=== PATIENT | male | born 1960 | race American Indian/Alaskan Native ===

== ENCOUNTER 2018-03-25 12:53 | Outpatient (CLI) | payer SELFPAY ==
--- NOTE | 2018-03-25 14:47 | XRay Report ---
Cervical spine, 5 views History: Cervical pain. Findings: No comparison. There is straightening of the normal lordosis which could be secondary to muscular spasm or positioning of the patient. There is mild disc space narrowing at C5-6. The remaining disc levels are within normal limits. The posterior elements are in appropriate relationship. Mild bilateral neural foraminal narrowing is identified at C5-6. The remaining neural foramen are patent. No evidence for fracture or malalignment. IMPRESSION: Straightening of the normal lordosis. Mild degenerative disc disease at C5-6.
== END 2018-03-25 12:54 | disposition home or self-care (01) ==
LOC: XRAY 12:53
PROVIDERS: ATTEND Family Medicine Adult Medicine
DX: M50.322 Other cervical disc degeneration at C5-C6 level (principal); Z88.8 Allergy status to other drugs, medicaments and biological substances
CPT/HCPCS: 72050